=== PATIENT | male | born 1955 | race Caucasian/White ===

== ENCOUNTER 2018-04-20 09:43 | Inpatient (IN) | payer OTHER ==
[2018-04-20 10:42] VITALS: BMI 50.1
--- NOTE | 2018-04-20 11:39 | HP ---
CIWA Score - CIWA Score Nausea/Vomitin Muscle Tremors: 2 Anxiety: 2 Agitation: 2 Paroxysmal Sweats: 1-Minimal Palms Moist Orientation: 0-Oriented Tacttile Disturbances: 1-Very Mild Itch/Numbness Auditory Disturbances: 1-Very Mild Visual Disturbances: 0-None Headache: 2-Mild CIWA-Ar Total Score: 13 Admission ROS BHS - HPI Chief Complaint: i need help to stop drinking alcohol Allergies/Adverse Reactions: Allergies Allergy/AdvReac Type Severity Reaction Status Date / Time penicillin G Allergy Severe unknown Verified 04/20/18 11:38 History of Present Illness: this 62 years old male with alcohol dependence seeking detox,withdrawal symptom, last detox [facility] 11/26/17 to 11/30/17 syncope alcohol related hypertension on med obesity,low back pain,arthritis both knees ambulation with cane ambulation with cane no significant period of sobriety depression Exam Limitations: No Limitations - Ebola screening Have you traveled outside of the country in the last 21 days: No Have you had contact with anyone from an Ebola affected area: No Have you been sick,other than usual withdrawal symptoms: No Do you have a fever: No - Review of Systems Constitutional: Loss of Appetite, Malaise, Night Sweats, Changes in sleep, Weakness EENT: reports: Nose Congestion Respiratory: reports: No Symptoms reported Cardiac: reports: No Symptoms Reported GI: reports: Nausea, Poor Appetite, Abdominal cramping : reports: No Symptoms Reported Musculoskeletal: reports: Back Pain, Muscle Pain Integumentary: reports: Dryness Neuro: reports: Tremors Endocrine: reports: No Symptoms Reported, Other (bor) Hematology: reports: No Symptoms Reported Psychiatric: reports: Judgement Intact, Mood/Affect Appropiate, Orientated x3 Patient History - Patient Medical History Hx Anemia: No Hx Asthma: No Hx Chronic Obstructive Pulmonary Disease (COPD): No Hx Cancer: No Hx Cardiac Disorders: No Hx Congestive Heart Failure: No Hx Hypertension: Yes (on med) Hx Hypercholesterolemia: No Hx Pacemaker: No HX Cerebrovascular Accident: No Hx Seizures: No Hx Dementia: No Hx Diabetes: No Hx Gastrointestinal Disorders: No Hx Liver Disease: No Hx Genitourinary Disorders: No Hx Sexually Transmitted Disorders: No Hx Renal Disease (ESRD): No Hx Thyroid Disease: No Hx Human Immunodeficiency Virus (HIV): No (last 2016 negative) Hx Hepatitis C: No Hx Depression: Yes (no med) Hx Suicide Attempt: No Hx Bipolar Disorder: No Hx Schizophrenia: No Other Medical History: no suicidal,no homicidal,low back pain,arthritis both knees,cane ambulate - Patient Surgical History Past Surgical History: Yes Hx Neurologic Surgery: No Hx Cataract Extraction: No Hx Cardiac Surgery: No Hx Lung Surgery: No Hx Breast Surgery: No Hx Breast Biopsy: No Hx Abdominal Surgery: No Hx Appendectomy: No Hx Cholecystectomy: No Hx Genitourinary Surgery: No Hx Section: No Hx Orthopedic Surgery: No Other Surgical History: TONSILLECTOMY A CHILD Anesthesia Reaction: No - PPD History Previous Implant?: Yes Documented Results: Negative w/o proof Date: 11/29/15 Results: 0 mm PPD to be Administered?: Yes - Smoking Cessation Smoking history: Former smoker Have you smoked in the past 12 months: No If you are a former smoker, when did you quit?: at age 20 Hx Chewing Tobacco Use: No Initiated information on smoking cessation: Yes 'Breaking Loose' booklet given: 04/20/18 - Substance & Tx. History Hx Alcohol Use: Yes Hx Substance Use: No Substance Use Type: Alcohol Hx Substance Use Treatment: Yes ([facility] 11/27/15 to 12/01/15) - Substances Abused Alcohol-vodka/beer Route: Oral Frequency: Daily Amount used: 1 qt./9-10 (12 oz.) Age of first use: 12 Date of Last Use: 04/19/18 Family Disease History - Family Disease History Family Disease History: Heart Disease: Father (HTN,ALCOHOL,LUNG,VA,), Other: Father Admission Physical Exam S - Vital Signs Vital Signs: Vital Signs - 24 hr 04/20/18 10:27 Temperature 97.3 F L Pulse Rate 84 Respiratory 18 Rate Blood Pressure 201/101 H - Physical General Appearance: Yes: Moderate Distress, Obese, Tremorous, Irritable, Sweating, Anxious HEENTM: Yes: Normal ENT Inspection, K[place], Pharynx Normal Respiratory: Yes: Lungs Clear, Normal Breath Sounds, No Respiratory Distress Neck: Yes: Within Normal Limits, Supple, Trachea in good position Breast: Yes: Within Normal Limits Cardiology: Yes: Within Normal Limits, Regular Rhythm, Regular Rate, S1, S2 Abdominal: Yes: Within Normal Limits, Normal Bowel Sounds, Non Tender, Soft Genitourinary: Yes: Within Normal Limits Back: Yes: Muscle Spasm Musculoskeletal: Yes: Back pain, Joint Stiffness, Muscle Pain Extremities: Yes: Normal Range of Motion, Tremors Neurological: Yes: junior software engineer II-XII NML intact, Fully Oriented, Alert, Motor Strength 5/5 Integumentary: Yes: Dry Lymphatic: Yes: Within Normal Limits - Diagnostic (1) Alcohol dependence with uncomplicated withdrawal Current Visit: No Status: Acute (2) Arthritis Current Visit: No Status: Chronic (3) Essential hypertension Current Visit: No Status: Chronic (4) Syncope Current Visit: Yes Status: Acute (5) Depression Current Visit: Yes Status: Acute (6) Morbid obesity Current Visit: Yes Status: Acute (7) Use of cane as ambulatory aid Current Visit: Yes Status: Acute (8) Low back pain Current Visit: Yes Status: Acute Cleared for Admission [facility] - Detox or Rehab [facility] Level of Care: Medically Managed Detox Regimen/Protocol: Librium S Breath Alcohol Content Breath Alcohol Content: 0 Urine Drug Screen - Results Drug Screen Negative: Yes
[2018-04-20] MEDS ORDERED: ACETAMINOPHEN 325 MG TABLET (FP) PO PRN (11:54)
[2018-04-20] MEDS ORDERED: MAG HYDROX/AL HYDROX/SIMETH 30 ML UNIT-DOSE CUP PO PRN (11:54)
[2018-04-20] MEDS ORDERED: hydrOXYzine PAMOATE 50 MG CAPSULE (FP) PO PRN (11:54)
[2018-04-20] MEDS ORDERED: MAGNESIUM CITRATE 300 ML BOTTLE PO PRN (11:54)
[2018-04-20] MEDS ORDERED: chlordiazePOXIDE HCL 25 MG CAPSULE PO PRN (11:54)
[2018-04-20] MEDS ORDERED: MAGNESIUM HYDROX 2400MG/30ML ORAL SUSPENSION 30 ML CUP PO PRN (11:54)
[2018-04-20] MEDS ORDERED: guaiFENesin/D-METHORPHAN HB 10 ML UNIT-DOSE CUPS PO PRN (11:54)
[2018-04-20] MEDS ORDERED: P-EPHED 60MG/TRIPROLIDI 2.5MG TABLET PO PRN (11:54)
[2018-04-20] MEDS ORDERED: IBUPROFEN 400 MG TABLET (FP) PO PRN (11:54)
[2018-04-20] MEDS ORDERED: LOPERAMIDE HCL 2 MG CAPSULE PO PRN (11:54)
[2018-04-20] MEDS ORDERED: MENTHOL/PHENOL 1 EACH UD MM PRN (11:54)
[2018-04-20] MEDS ORDERED: cloNIDine HCL 0.1 MG TABLET PO ONE (13:39)
[2018-04-20] MEDS: chlordiazePOXIDE HCL 25 MG CAPSULE PO SCH ×2 (17:29→22:17)
[2018-04-20 21:48] LABS: URINE APPEARANCE TURBID; URINE BILIRUBIN NEGATIVE (<2.0 mg/dL); URINE COLOR YELLOW; URINE GLUCOSE (UA) NEGATIVE (NEGATIVE); URINE KETONE NEGATIVE (NEGATIVE); URINE LEUK ESTERASE NEGATIVE (NEGATIVE); URINE NITRITE NEGATIVE (NEGATIVE); URINE PROTEIN NEGATIVE (NEGATIVE); URINE UROBILINOGEN NEGATIVE mg/dL (0.2-1.0)
[2018-04-20] MEDS: THIAMINE HCL 100 MG TABLET (FP) PO SCH (22:17)
[2018-04-20] MEDS: MELATONIN 5 MG TABLETS PO PRN (22:19)
[2018-04-21] MEDS: chlordiazePOXIDE HCL 25 MG CAPSULE PO SCH ×4 (05:26→22:02)
--- NOTE | 2018-04-21 09:20 | CONSULT ---
[facility] Psychiatric Consult - Data Date of interview: 04/21/18 Admission source: [facility] Identifying data: Patient is a 62 year old male, only child last year, unemployed, domiciled, and is supported by [facility]. This is one of multiple admissions for patient. Patient admitted to for alcohol dependence. Substance Abuse History: Smoking Cessation. Smoking history: Former smoker. Have you smoked in the past 12 months: No. If you are a former smoker, when did you quit?: at age 20. Hx Chewing Tobacco Use: No. Initiated information on smoking cessation: Yes. 'Breaking Loose' booklet given: 04/20/18. - Substance & Tx. History. Hx Alcohol Use: Yes. Hx Substance Use: No. Substance Use Type: Alcohol. Hx Substance Use Treatment: Yes ([facility] 11/27/15 to 12/01/15). - Substances Abused. Alcohol-vodka/beer. Route: Oral. Frequency: Daily. Amount used: 1 qt./9-10 (12 oz.). Age of first use: 12. Date of Last Use: 04/19/18 Medical History: hypertension, tonsillectomy Psychiatric History: Patient denies h/o psychiatric hospitalization. He reports past h/o outpatient psychiatric care 2-3 years ago. He was prescribed lamictal 100mg HS + trazodone 100mg. Patient has not taken psychotrophic medications since his last admission to detox in 2015. Patient denies h/o suicide attempts. At present, patient reports difficulty sleeping. Physical/Sexual Abuse/Trauma History: denies. Mental Status Exam - Mental Status Exam Alert and Oriented to: Time, Place, Person Cognitive Function: Good Patient Appearance: Well Groomed Mood: Euthymic Affect: Mood Congruent Patient Behavior: Appropriate, Cooperative Speech Pattern: Clear, Appropriate Voice Loudness: Normal Thought Process: Intact, Goal Oriented Thought Disorder: Not Present Hallucinations: Denies Suicidal Ideation: Denies Homicidal Ideation: Denies Insight/Judgement: Poor Sleep: Poorly Appetite: Fair Gait/Station: Other (Patient uses a cane to ambulate.) Psychiatric Findings - Problem List ([place] 1, 2,3) (1) Alcohol-induced mood disorder Current Visit: Yes Status: Acute (2) Alcohol dependence with uncomplicated withdrawal Current Visit: Yes Status: Acute (3) Insomnia Current Visit: Yes Status: Acute (4) Depressive disorder Current Visit: Yes Status: Chronic - Initial Treatment Plan Initial Treatment Plan: Psychoeducation provided. Detoxification in progress. Will order Trazodone 75mg qhs (patient's request) . Benefits and side effects discussed. Patient made aware of the risk of priapism. Verbal consent given.
[2018-04-21] MEDS: FUROSEMIDE 40 MG TABLET (FP) PO SCH (10:07)
[2018-04-21] MEDS: DICLOFENAC SODIUM 75 MG TABLET.DR PO SCH (10:08)
[2018-04-21] MEDS: PATIENT'S OWN MEDICATION (NON-FORMULARY) (Olmesartan Medoxomil 40 MG) PO SCH (10:08)
[2018-04-21] MEDS: PRENATAL VITAMINS W/ FOLIC ACID TABLET (FP) PO SCH (10:08)
[2018-04-21 10:27] LABS: HEMOGLOBIN 14.1 GM/dL (11.7-16.9); MCH 32.4 pg (25.7-33.7); MCHC 33.7 g/dl (32.0-35.9); MEAN PLT VOLUME 10.2 fl (7.5-11.1); PLATELET COUNT 207 K/MM3 (134-434); RBC 4.37 M/mm3 (4.00-5.60); RDW 14.2 % (11.9-15.9); WHITE BLOOD COUNT 10.7 K/mm3 (4.0-10.0)
[2018-04-21 10:41] LABS: ALK PHOS 74 U/L (45-117); ANION GAP 11 MMOL/L (8-16); BILIRUBIN,TOTAL 0.8 mg/dL (0.2-1); BLOOD UREA NITROGEN 28 mg/dL (7-18); CALCIUM 8.9 mg/dL (8.5-10.1); CHLORIDE 108 mmol/L (98-107); CO2 25 mmol/L (21-32); CREATININE 1.5 mg/dL (0.55-1.3); GLUCOSE,RANDOM 109 mg/dL (74-106); POTASSIUM 5.4 mmol/L (3.5-5.1); SGOT/AST 45 U/L (15-37); SGPT/ALT 63 U/L (13-61); SODIUM 144 mmol/L (136-145); TOT PROT 7.6 g/dl (6.4-8.2)
--- NOTE | 2018-04-21 14:47 | EKG ---
Test Reason : Blood Pressure : / mmHG Vent. Rate : 082 BPM Atrial Rate : 082 BPM P-R Int : 196 ms QRS Dur : 090 ms QT Int : 382 ms P-R-T Axes : 052 043 048 degrees QTc Int : 446 ms NORMAL SINUS RHYTHM NORMAL ECG NO PREVIOUS ECGS AVAILABLE Confirmed by MD Hayden, Burak ([id number]) on 04/21/2018 2:47:17 PM Referred By: Confirmed By:Burak Blake MD
--- NOTE | 2018-04-21 16:41 | PN ---
[facility] CIWA - CIWA Score Nausea/Vomitin-Mild Nausea/No Vomiting Muscle Tremors: 2 Anxiety: 2 Agitation: 3 Paroxysmal Sweats: 3 Orientation: 0-Oriented Tacttile Disturbances: 0-None Auditory Disturbances: 0-None Visual Disturbances: 1-Very Mild Sensitivity Headache: 0-None Present CIWA-Ar Total Score: 12 S Progress Note (SOAP) Subjective: interrupted sleep, anxious, body aches Objective: 04/21/18 16:39 Vital Signs Temperature 97.2 F L 04/21/18 13:49 Pulse Rate 72 04/21/18 13:49 Respiratory Rate 18 04/21/18 13:49 Blood Pressure 114/68 04/21/18 13:49 O2 Sat by Pulse Oximetry (%) Laboratory Last Values WBC 10.7 K/mm3 (4.0-10.0) H 04/21/18 05:40 RBC 4.37 M/mm3 (4.00-5.60) 04/21/18 05:40 Hgb 14.1 GM/dL (11.7-16.9) 04/21/18 05:40 Hct 42.0 % (35.4-49) 04/21/18 05:40 MCV 96.0 fl (80-96) 04/21/18 05:40 MCH 32.4 pg (25.7-33.7) 04/21/18 05:40 MCHC 33.7 g/dl (32.0-35.9) 04/21/18 05:40 RDW 14.2 % (11.9-15.9) 04/21/18 05:40 Plt Count 207 K/MM3 (134-434) 04/21/18 05:40 MPV 10.2 fl (7.5-11.1) 04/21/18 05:40 Sodium 144 mmol/L (136-145) 04/21/18 05:40 Potassium 5.4 mmol/L (3.5-5.1) H 04/21/18 05:40 Chloride 108 mmol/L (98-107) H 04/21/18 05:40 Carbon Dioxide 25 mmol/L (21-32) 04/21/18 05:40 Anion Gap 11 MMOL/L (8-16) 04/21/18 05:40 BUN 28 mg/dL (7-18) H 04/21/18 05:40 Creatinine 1.5 mg/dL (0.55-1.3) H 04/21/18 05:40 Creat Clearance w eGFR 47.27 (>60) 04/21/18 05:40 Random Glucose 109 mg/dL (74-106) H 04/21/18 05:40 Calcium 8.9 mg/dL (8.5-10.1) 04/21/18 05:40 Total Bilirubin 0.8 mg/dL (0.2-1) 04/21/18 05:40 AST 45 U/L (15-37) H 04/21/18 05:40 ALT 63 U/L (13-61) H 04/21/18 05:40 Alkaline Phosphatase 74 U/L (45-117) 04/21/18 05:40 Total Protein 7.6 g/dl (6.4-8.2) 04/21/18 05:40 Albumin 4.0 g/dl (3.4-5.0) 04/21/18 05:40 Urine Color Yellow 04/20/18 16:27 Urine Appearance Turbid 04/20/18 16:27 Urine pH 5.0 (5.0-8.0) 04/20/18 16:27 Ur Specific [place] 1.018 (1.010-1.035) 04/20/18 16:27 Urine Protein Negative (NEGATIVE) 04/20/18 16:27 Urine Glucose (UA) Negative (NEGATIVE) 04/20/18 16:27 Urine Ketones Negative (NEGATIVE) 04/20/18 16: Urine Blood Negative (NEGATIVE) 04/20/18 16: Urine Nitrite Negative (NEGATIVE) 04/20/18 16:27 Urine Bilirubin Negative (<2.0 mg/dL) 04/20/18 16: Urine Urobilinogen Negative mg/dL (0.2-1.0) 04/20/18 16:27 Ur Leukocyte Esterase Negative (NEGATIVE) 04/20/18 16:27 RPR Titer Nonreactive (NONREACTIVE) 04/21/18 05:40 Aox3, irritable no adventitious breath sounds full ROM ambulating in the unit Assessment: 04/21/18 16:40 withdrawal sx hyperkalemia Plan: kayexalate PO once increase fluids repeat CMP continue detox continue to monitor
[2018-04-21] MEDS ORDERED: SODIUM POLYSTYRENE SULFONATE 15 GM/60 ML BOTTLE PO ONE (17:00)
[2018-04-21] MEDS: THIAMINE HCL 100 MG TABLET (FP) PO SCH (22:02)
[2018-04-21] MEDS: traZODone HCL 50 MG TABLET (FP) PO SCH (22:02)
[2018-04-21] MEDS: MELATONIN 5 MG TABLETS PO PRN (22:03)
[2018-04-22] MEDS: chlordiazePOXIDE HCL 25 MG CAPSULE PO SCH ×2 (06:00→10:15)
[2018-04-22] MEDS: FUROSEMIDE 40 MG TABLET (FP) PO SCH (10:15)
[2018-04-22] MEDS: PRENATAL VITAMINS W/ FOLIC ACID TABLET (FP) PO SCH (10:16)
[2018-04-22] MEDS: DICLOFENAC SODIUM 75 MG TABLET.DR PO SCH (10:16)
[2018-04-22] MEDS: PATIENT'S OWN MEDICATION (NON-FORMULARY) (Olmesartan Medoxomil 40 MG) PO SCH (10:16)
[2018-04-22 10:46] LABS: ALBUMIN 3.8 g/dl (3.4-5.0); ALK PHOS 72 U/L (45-117); ANION GAP 10 MMOL/L (8-16); BILIRUBIN,TOTAL 0.6 mg/dL (0.2-1); BLOOD UREA NITROGEN 31 mg/dL (7-18); CALCIUM 8.6 mg/dL (8.5-10.1); CHLORIDE 108 mmol/L (98-107); CO2 25 mmol/L (21-32); CREATININE 1.6 mg/dL (0.55-1.3); GLUCOSE,RANDOM 128 mg/dL (74-106); POTASSIUM 4.5 mmol/L (3.5-5.1); SGOT/AST 64 U/L (15-37); SGPT/ALT 77 U/L (13-61); SODIUM 143 mmol/L (136-145); TOT PROT 7.2 g/dl (6.4-8.2)
--- NOTE | 2018-04-22 13:13 | PN ---
S CIWA - CIWA Score Nausea/Vomitin Muscle Tremors: 3 Anxiety: 3 Agitation: 2 Paroxysmal Sweats: 3 Orientation: 0-Oriented Tacttile Disturbances: 0-None Auditory Disturbances: 0-None Visual Disturbances: 0-None Headache: 0-None Present CIWA-Ar Total Score: 13 BHS Progress Note (SOAP) Subjective: Sweating, diarrhea Objective: 04/22/18 13:09 Last Vital Signs Temp Pulse Resp BP Pulse Ox 97.1 F L 88 18 120/64 04/22/18 09:41 04/22/18 09:41 04/22/18 09:41 04/22/18 09:41 Laboratory Tests 04/20/18 04/21/18 04/21/18 16:27 05:40 05:40 WBC 10.7 H RBC 4.37 Hgb 14.1 Hct 42.0 MCV 96.0 MCH 32.4 MCHC 33.7 RDW 14.2 Plt Count 207 MPV 10.2 Sodium 144 Potassium 5.4 H Chloride 108 H Carbon Dioxide 25 Anion Gap 11 BUN 28 H Creatinine 1.5 H Creat Clearance w eGFR 47.27 Random Glucose 109 H Calcium 8.9 Total Bilirubin 0.8 AST 45 H ALT 63 H Alkaline Phosphatase 74 Total Protein 7.6 Albumin 4.0 Urine Color Yellow Urine Appearance Turbid Urine pH 5.0 Ur Specific [place] 1.018 Urine Protein Negative Urine Glucose (UA) Negative Urine Ketones Negative Urine Blood Negative Urine Nitrite Negative Urine Bilirubin Negative Urine Urobilinogen Negative Ur Leukocyte Esterase Negative RPR Titer 04/21/18 04/22/18 05:40 07:35 WBC RBC Hgb Hct MCV MCH MCHC RDW Plt Count MPV Sodium 143 Potassium 4.5 Chloride 108 H Carbon Dioxide 25 Anion Gap 10 BUN 31 H Creatinine 1.6 H Creat Clearance w eGFR 43.87 Random Glucose 128 H Calcium 8.6 Total Bilirubin 0.6 AST 64 H ALT 77 H Alkaline Phosphatase 72 Total Protein 7.2 Albumin 3.8 Urine Color Urine Appearance Urine pH Ur Specific [place] Urine Protein Urine Glucose (UA) Urine Ketones Urine Blood Urine Nitrite Urine Bilirubin Urine Urobilinogen Ur Leukocyte Esterase RPR Titer Nonreactive Labs reviewed: bun 31, creatinine 1.6 Assessment: 04/22/18 13:10 Withdrawal symptoms Noted with JOSH Plan: Continue detox JOSH: encouraged to drink lots of water for hydration, repeat bun and serum creatinine in AM
[2018-04-22] MEDS: chlordiazePOXIDE 5 MG CAPSULE PO SCH ×2 (17:28→22:21)
[2018-04-22] MEDS: traZODone HCL 50 MG TABLET (FP) PO SCH (22:21)
[2018-04-22] MEDS: THIAMINE HCL 100 MG TABLET (FP) PO SCH (22:21)
[2018-04-22] MEDS: MELATONIN 5 MG TABLETS PO PRN (22:23)
[2018-04-23] MEDS: chlordiazePOXIDE 5 MG CAPSULE PO SCH ×2 (05:59→10:18)
[2018-04-23] MEDS: PATIENT'S OWN MEDICATION (NON-FORMULARY) (Olmesartan Medoxomil 40 MG) PO SCH (10:17)
[2018-04-23] MEDS: FUROSEMIDE 40 MG TABLET (FP) PO SCH (10:17)
[2018-04-23] MEDS: DICLOFENAC SODIUM 75 MG TABLET.DR PO SCH (10:17)
[2018-04-23] MEDS: PRENATAL VITAMINS W/ FOLIC ACID TABLET (FP) PO SCH (10:18)
[2018-04-23 14:30] LABS: CREATININE 1.6 mg/dL (0.55-1.3)
--- NOTE | 2018-04-23 15:45 | PN ---
BHS Progress Note (SOAP) Subjective: chronic pain sweats diarrhea Objective: 04/23/18 15:44 A & O x 3 On bed Vital Signs Temperature 97.8 F 04/23/18 13:06 Pulse Rate 89 04/23/18 13:06 Respiratory Rate 18 04/23/18 13:06 Blood Pressure 122/79 04/23/18 13:06 O2 Sat by Pulse Oximetry (%) Assessment: 04/23/18 15:45 withdrawal sx Plan: continue detox
[2018-04-23] MEDS: chlordiazePOXIDE HCL 10 MG CAPSULE PO SCH ×2 (17:27→22:13)
[2018-04-23] MEDS: traZODone HCL 50 MG TABLET (FP) PO SCH (22:14)
[2018-04-23] MEDS: THIAMINE HCL 100 MG TABLET (FP) PO SCH (22:14)
[2018-04-23] MEDS: MELATONIN 5 MG TABLETS PO PRN (22:14)
[2018-04-24] MEDS: chlordiazePOXIDE HCL 10 MG CAPSULE PO SCH (05:16)
[2018-04-24] MEDS ORDERED: DICLOFENAC SODIUM 75 MG TABLET.DR PO SCH (05:30)
[2018-04-24 06:03] VITALS: BP 122/75; PULSE 67; TEMP 96.7
--- NOTE | 2018-04-24 09:02 | PN ---
Psychiatric Progress Note Vital Signs: Vital Signs Period Temp Pulse Resp BP Sys/[place] Pulse Ox Last 24 Hr 96.7 F-98.4 F 67-89 18-20 119-130/71-79 Date of Session: 04/24/18 Chief Complaint:: "did i get my prescription" HPI: Patient admitted to for alcohol dependence. ROS: hypertension, tonsillectomy Current Medications: Active Medications Generic Name Dose Route Start Last Admin Trade Name Freq PRN Reason Stop Dose Admin Chlordiazepoxide HCl 10 mg 04/23/18 17:00 04/24/18 05:16 Librium - PO 04/24/18 11:01 10 mg [id number] MARTÍNEZ Administration Diclofenac Sodium 75 mg 04/24/18 05:30 04/24/18 06:04 Voltaren - PO 75 mg DAILY MARTÍNEZ Administration Eucalyptus/Menthol/Phenol/Sorbitol 1 each 04/20/18 11:54 Cepastat Lozenge - MM Q4H PRN SORE THROAT Furosemide 40 mg 04/21/18 10:00 04/23/18 10:17 Lasix - PO 40 mg DAILY MARTÍNEZ Administration Guaifenesin 10 ml 04/20/18 11:54 Robitussin Dm - PO Q6H PRN COUGH Hydroxyzine Pamoate 50 mg 04/20/18 11:54 Vistaril - PO Q4H PRN AGITATION Loperamide HCl 4 mg 04/20/18 11:54 04/22/18 19:21 Imodium - PO 4 mg Q6H PRN Administration DIARRHEA Melatonin 5 mg 04/20/18 22:00 04/23/18 22:14 Melatonin PO 5 mg HS PRN Administration INSOMNIA Non-Formulary Medication 40 mg 04/21/18 10:00 04/23/18 10:17 Olmesartan Medoxomil PO 40 mg DAILY MARTÍNEZ Administration Multivit/Folic Acid/Iron 1 tab 04/21/18 10:00 04/23/18 10:18 Vitamins ([facility]) - PO 1 tab DAILY MARTÍNEZ Administration Pseudoephedrine/Triprolidine 1 combo 04/20/18 11:54 Actifed - PO TID PRN NASAL CONGESTION Thiamine HCl 100 mg 04/20/18 22:00 04/23/18 22:14 Vitamin B1 - PO 100 mg HS MARTÍNEZ Administration Trazodone HCl 75 mg 04/21/18 22:00 04/23/18 22:14 Desyrel - PO 75 mg HS [facility] Administration Provider note:: Psychiatric reconsult not needed. Patient requesting to see psychiatric nurse practitioner to verify that his medications were sent to his pharmacy. Psychiatric Treatment Plan - Problem List (1) Alcohol-induced mood disorder Current Visit: Yes (2) Alcohol dependence with uncomplicated withdrawal Current Visit: Yes (3) Insomnia Current Visit: Yes (4) Depressive disorder Current Visit: Yes
--- NOTE | 2018-04-24 10:37 | DS ---
[facility] Detox Discharge Summary Admission Date: 04/20/18 Discharge Date: 04/24/18 - History Present History: Alcohol Dependence - Physical Exam Results Vital Signs: Vital Signs Temperature 96.7 F L 04/24/18 06:02 Pulse Rate 67 04/24/18 06:02 Respiratory Rate 18 04/24/18 06:02 Blood Pressure 122/75 04/24/18 06:02 O2 Sat by Pulse Oximetry (%) Pertinent Admission Physical Exam Findings: PATIENT COMPLETED DETOX REGIMEN WITHOUT ADVERSE EVENT. PATIENT D/C CLINICALLY STABLE, ALERT AND ORIENTED X 3, DENIES SI/HI. PATIENT ENCOURAGED TO FOLLOW UP WITH AA TO PREVENT RELAPSE, PCP WITHIN ONE WEEK OF DISCHARGE AND TO SEEK MEDICAL ATTENTION IF WITHDRAWAL SX OCCUR. D/C INSTRUCTIONS GIVEN TO PATIENT AND PROVIDED BY STAFF. - Treatment Hospital Course: Detox Protocol Followed, Responded well, Discharged Condition Good - Medication Discharge Medications: Ambulatory Orders Diclofenac Sodium 75 mg PO DAILY 01/10/14 Furosemide [Lasix -] 40 mg PO DAILY 11/27/15 Olmesartan Medoxomil [Benicar (Nf)] 40 mg PO DAILY 04/20/18 traZODone HCL [Desyrel -] 75 mg PO HS #45 tablet 04/24/18 - AMA Did Patient Leave Against Medical Advice: No
== END 2018-04-24 09:18 | disposition home or self-care (01) | DRG 897 ==
LOC: YASAS 09:43 → Y3N 11:50
PROC: HZ2ZZZZ Detoxification Services for Substance Abuse Treatment (ICD-10-PCS; principal; 2018-04-20)
DX: F10.230 Alcohol dependence with withdrawal, uncomplicated (principal); Z68.43 Body mass index [BMI] 50.0-59.9, adult; N17.9 Acute kidney failure, unspecified; F10.24 Alcohol dependence with alcohol-induced mood disorder; F32.9 Major depressive disorder, single episode, unspecified; G47.00 Insomnia, unspecified; B18.2 Chronic viral hepatitis C; E87.5 Hyperkalemia; I10 Essential (primary) hypertension; R55 Syncope and collapse; M12.9 Arthropathy, unspecified; E66.01 Morbid (severe) obesity due to excess calories; M54.5 Low back pain; G89.29 Other chronic pain; R26.89 Other abnormalities of gait and mobility; Z99.89 Dependence on other enabling machines and devices
CPT/HCPCS: 36415; 80053; 81003; 82565; 84520; 85027; 86593; 93005; 93010; J0735